=== PATIENT | male | born 1985 | race Caucasian/White ===

== ENCOUNTER → 2017-09-17 | Outpatient (CLI) | payer OTHER | END | disposition home or self-care (01) | LOC: RAD 09:45 | PROVIDERS: ATTEND Student in an Organized Health Care Education/Training Program | DX: R51 Headache (principal) | CPT/HCPCS: 70450 ==

== ENCOUNTER 2018-07-30 12:10 | Emergency (ER) | payer MEDICAID, OTHER ==
[~2018-07-30] VITALS: Ht 182.9 cm; Wt 69.0 kg
[2018-07-30 12:31] LABS: BASOPHILS # (AUTO) 0.03 x10^3/uL (0-0.1); BASOPHILS % (AUTO) 1 % (0-1); EOSINOPHILS # (AUTO) 0.04 x10^3/uL (0-0.4); EOSINOPHILS % (AUTO) 1 % (1-7); LYMPHOCYTES # (AUTO) 1.87 x10^3/uL (1-3.4); LYMPHOCYTES % (AUTO) 32 % (22-44); MD NO; MEAN CORPUSCULAR HEMOGLOBIN 31.3 pg (27.5-34.5); MEAN CORPUSCULAR HGB CONC 33.6 g/dL (33.2-36.2); MEAN CORPUSCULAR VOLUME 93.4 fL (81-97); MEAN PLATELET VOLUME 9.1 fL (7.4-10.4); MONOCYTES # (AUTO) 0.47 x10^3/uL (0.2-0.8); MONOCYTES % (AUTO) 8 % (2-9); NEUTROPHILS % (AUTO) 59 % (42-75); PLATELET COUNT 241 x10^3/uL (130-400); RED BLOOD COUNT 5.26 x10^6/uL (4.38-5.82); RED CELL DISTRIBUTION WIDTH 13.3 % (9.4-14.8)
[2018-07-30 12:43] LABS: ALBUMIN 4.4 g/dL (3.4-5.0); ANION GAP 3 mmol/L (5-15); CALCIUM 9.5 mg/dL (8.5-10.1); CHLORIDE 106 mmol/L (98-107)
[2018-07-30 12:46] LABS: ALANINE AMINOTRANSFERASE 33 U/L (12-78); ALKALINE PHOSPHATASE 65 U/L (45-117); BILIRUBIN,TOTAL 1.2 mg/dL (0.2-1.0); TOTAL PROTEIN 7.7 g/dL (6.4-8.2)
--- NOTE | 2018-07-30 15:05 | NUR ---
PT AMBULATORY TO ROOM.
[2018-07-30] MEDS ORDERED: ONDANSETRON ODT 4 MG PO ONE (15:30)
--- NOTE | 2018-07-30 15:50 | NUR ---
N/V/D X 2 DAYS. AFEBRILE, VSS. SOFT NON TENDER ABDOMEN. APPEAR WELL. REPORTS HE THINKS HE ATE SOMETHING SUSPECT. LABS REVIEWED. PATIENT ASKING TO LEAVE D/T CHILDCARE ISSURES. PROVIDER MADE AWARE
[2018-07-30] MEDS ORDERED: ONDANSETRON ODT 4 MG ONE ×2 (15:51→15:56)
--- NOTE | 2018-07-30 16:12 | NUR ---
PATIENT REPORTS NAUSE IMPROVED, ABLE TO TOLERATE PO WATER/SALTINES & SPRITE. REVIEWED DISCHARGE INFORMATIONS/PRESCRIPTIONS
[2018-07-30 16:19] VITALS: BP 111/75
== END 2018-07-30 16:21 | disposition home or self-care (01) ==
LOC: ED 16:06
DX: R19.7 Diarrhea, unspecified (principal); R11.2 Nausea with vomiting, unspecified
CPT/HCPCS: 36415; 80053; 83690; 85025; 99283; Q0162